=== PATIENT | female | born 1990 | race American Indian/Alaskan Native ===

== ENCOUNTER 2020-08-06 09:44 | Outpatient (CLI) | payer MEDICAID ==
[2020-08-06 10:34] VITALS: BP 121/77
[2020-08-06] MEDS ORDERED: LACTATED RINGERS 500 ML IV ONE (11:15)
[2020-08-06] MEDS ORDERED: LACTATED RINGERS 1,000 ML IV ONE (12:00)
[2020-08-06] MEDS ORDERED: NIFEdipine*For Tocolysis only* 10 MG CAPSULE PO SCH (12:00)
== END 2020-08-06 12:10 | disposition home or self-care (01) ==
LOC: TRG 09:44 → APU 09:46 → TRG 12:10
PROVIDERS: ATTEND Obstetrics & Gynecology
DX: O62.9 Abnormality of forces of labor, unspecified (principal); Z3A.35 35 weeks gestation of pregnancy
CPT/HCPCS: 96360; J7120